=== PATIENT | female | born 1955 | race Caucasian/White ===

== ENCOUNTER → 2020-09-25 | Outpatient (CLI) | payer OTHER | LOC: RAD 16:57 | DX: R05 Cough (principal); R91.8 Other nonspecific abnormal finding of lung field; J94.2 Hemothorax | CPT/HCPCS: 71046 ==

== ENCOUNTER 2021-06-28 20:32 | Emergency (ER) | payer OTHER ==
[~2021-06-28] VITALS: Ht 170.2 cm; Wt 86.2 kg
[2021-06-28 22:59] LABS: HEMOGLOBIN 15.6 gm/dl (12.3-15.3); RED BLOOD COUNT 5.01 M/UL (4.00-5.10)
== END 2021-06-29 04:00 | disposition home or self-care (01) ==
LOC: ER1 20:32
PROVIDERS: Emergency Medicine
DX: R10.11 Right upper quadrant pain (principal); R11.0 Nausea
CPT/HCPCS: 80053; 81001; 83690; 85025; 96374; 96375; 99284; J2270; J2405; Q9967

== ENCOUNTER → 2021-07-26 | Outpatient (CLI) | payer OTHER | LOC: KOH-I 10:15 | DX: R10.11 Right upper quadrant pain (principal); R16.0 Hepatomegaly, not elsewhere classified; N28.89 Other specified disorders of kidney and ureter | CPT/HCPCS: 76705 ==

== ENCOUNTER → 2021-11-02 | Outpatient (CLI) | payer MEDICARE, OTHER | LOC: KOH-I 15:34 | DX: R06.02 Shortness of breath (principal) | CPT/HCPCS: 71046 ==